=== PATIENT | female | born 1995 | race Caucasian/White ===

== ENCOUNTER 2019-04-07 20:08 | Observation (INO) ==
[2019-04-07] MEDS ORDERED: ZOFRAN IV ONE (20:29)
[2019-04-07] MEDS ORDERED: NS 1,000 ML IV ONE ×2 (20:29→21:43)
[2019-04-07 21:11] LABS: BASO# 0.01 X1000 (0.0-0.2); BASO% 0.1 % (0.0-0.8); EOS# 0.04 X1000 (0.0-0.7); EOS% 0.3 % (0.0-10.0); HEMATOCRIT 46.8 % (37.0-47.0); HEMOGLOBIN 15.1 g/dL (12.0-16.0); IMM GRAN# 0.02 X1000 (0.0-0.04); IMM GRAN% 0.1 % (0.0-0.5); LYMPH# 0.66 X1000 (1.2-3.4); LYMPH% 4.6 % (20.5-51.1); MCH 27.9 PG (27-31); MCHC 32.3 g/dL (33-37); MCV 86.3 FL (81-99); MONO# 0.72 X1000 (0.11-0.59); NEUT# 12.81 X1000 (1.4-6.5); NEUT% 89.9 % (42.2-75.2); PLT 228 X1000 (130-400); RBC 5.42 XMIL (4.2-5.4); RDW 12.8 % (11.5-14.5); WBC 14.26 X1000 (4.8-10.8)
--- NOTE | 2019-04-07 21:12 | PROVIDER DOCUMENTATION ---
HPI-Abdominal Pain/GI Problem - General Chief Complaint: N/V/D Stated Complaint: V/D/LETHARGIC Time Seen by Provider: 04/07/19 20:29 Source: patient Allergies/Adverse Reactions: Patient Allergies Allergy/AdvReac Type Severity Reaction Status Date / Time No Known Allergies Allergy Verified 08/12/12 08:55 Home Medications: Home Medication List Medication Instructions Recorded Confirmed Last Taken Type Norethindrone-E.estradiol-Iron 1 each PO DAILY 05/11/13 04/07/19 05/10/13 21:00 History [Eliz Fe 1-20 Tablet] Omeprazole [Prilosec] 20 mg PO DAILY 04/07/19 04/07/19 Unknown History - History of Present Illness-ABD Nature of Presenting Problems: 23 YOF PRESENTS WITH C/O N/V/D & ABDOMINAL PAIN THAT BEGAN AT [address] 430 TODAY. PT AND MOTHER REPORTS SHE HAS BEEN UNABLE TO HOLD ANYTHING DOWN SINCE THAT TIME. SHE REPORTS MULTIPLE PEOPLE SICK WITH THE SAME. SHE C/O CHILLS. DENIES FEVER Abdominal Pain Onset Location: reports: generalized abdomen Pain Radiation: reports: no radiation Quality of Pain: reports: aching Severity in ED: reports: moderate Onset/Duration: reports: 4-6 hours ago Timing: reports: still present Activities at Onset: reports: none Exposure to sick contacts?: Yes Modifying Factors: worse with: eating Associated Symptoms: reports: diarrhea, nausea, vomiting Last BM: this evening Dark Stools Present?: reports: none noticed Rectal Bleeding: reports: none Rectal Pain: reports: none Emesis Description: reports: none Bruising or Bleeding Gums?: No Similar Symptoms Previously?: No Recently seen or treated by another doctor?: No Review of Systems - Adult - REVIEW OF SYSTEMS - ADULT Constitutional: reports: no symptoms reported. denies: see HPI, chills, fever, fatique, night sweats, weight gain, weight loss, other Eyes: reports: no symptoms reported. denies: see HPI, discharge, dry eyes, decreased vision, blurred vision, double vision, eye pain, redness, other Ears, Nose, Mouth & Throat: reports: no symptoms reported. denies: see HPI, ear discharge, ear pain, hearing loss, tinnitus, epistaxis, sinus problem, nose pain, loose teeth, mouth/dental pain, mouth swelling, hoarseness, throat pain, throat swelling, other Cardiovascular: reports: no symptoms reported. denies: see HPI, chest pain, edema, heart murmur, irregular heart rate, orthopnea, palpitations, poor circulation, PND, syncope, other Respiratory: reports: no symptoms reported. denies: see HPI, chronic cough, cough, dyspnea on exertion, excessive sputum production, hemoptysis, pleurisy, shortness of breath, wheezing, other Gastrointestinal: reports: see HPI, abdominal pain, diarrhea, nausea, vomiting. denies: no symptoms reported, hematemesis, constipation, difficulty swallowing, frequent heartburn, poor appetite, rectal bleeding, other Genitourinary: reports: no symptoms reported. denies: see HPI, dysuria, discharge, frequency, flank pain, frequent UTI's, hematuria, hesitency, incontinence, urinary retention, urgency, other Musculoskeletal: reports: no symptoms reported. denies: see HPI, bone pain, back pain, frequent leg cramps, joint pain, joint swelling, muscle aches, muscle weakness, neck pain, other Integumentary: reports: no symptoms reported. denies: see HPI, hives, hair loss, itching, mole changes, nail changes, rash, skin sores/ulcer, skin thickening, other Neurological: reports: no symptoms reported. denies: see HPI, ataxia, dizziness/vertigo, headache/migraines, loss of balance, numbness, paresthesia, seizure, slurred speech, syncope, tremors, other Psychiatric: reports: no symptoms reported. denies: see HPI, anxiety, anti- depressant use, alcohol/drug dependence, depression, emotional problems, insomnia, panic attacks, suicidal thoughts, other Endocrine: reports: no symptoms reported. denies: see HPI, change in skin p igment, excessive sweating, goiter, cold intolerance, heat intolerance, increased hunger, increased thirst, polyuria, other Hematologic/Lymphatic: reports: no symptoms reported. denies: see HPI, blood clots, easy bruising, low blood count, lymphedema, prolonged bleeding, swollen lymph nodes, transfusions, other Allergic/Immunologic: reports: no symptoms reported. denies: see HPI, allergic reactions, allergic rhinitis, asthma, eczema, food allergy, frequent infections, hay fever, hives, positive PPD, urticaria, other Past History - Adult - PAST MEDICAL HISTORY-ADULT Review of Records: reports: Nursing Assessment Review, Social history reviewed & non-contributory. Physical Exam-General - PHYSICAL EXAM-ADULT Initial Vital Signs Reviewed: Yes - CONSTITUTIONAL General Appearance: alert, no apparent distress - EYES Eyes: PERRL/EOMI, pink conjunctivae - HEAD, EARS, NOSE, MOUTH & THROAT HENMT: normocephalic/atraumatic, normal ENT inspection. negative: moist mucous membranes (DRY) - NECK Neck: non-tender, full range of motion, supple - RESPIRATORY Respiratory: chest non-tender, lungs clear, normal breath sounds, no pleuratic chest pain, no respiratory distress, no accessory muscle use - CARDIOVASCULAR Cardiovascular: normal peripheral pulses, regular rate, rhythm, no edema, no gallop, no JVD, no murmur - GASTROINTESTINAL (ABDOMEN) Abdominal Exam: normal bowel sounds, non tender, soft - LYMPHATIC Lymphatic: no adenopathy - MUSCULOSKELETAL Back Exam: normal inspection, no CVA tenderness, no vertebral tenderness Extremity: normal range of motion, non-tender, normal gait, normal inspection Peripheral Pulses: radial (R): 2+, radial (L): 2+ - SKIN Integumentary: normal turgor, warm/dry. negative: normal color (PALE) - NEUROLOGIC Neurologic: grossly normal - PSYCHIATRIC Psych/Mental Status: normal mood/affect, oriented x 3 Progress - PLAN OF CARE/RESULTS Progress/Plan/Lab Results: Vital Signs - 8 hr 04/07/19 20:19 Temperature 97.5 F L Pulse Rate 111 H Respiratory Rate 22 O2 Sat by Pulse Oximetry 98 Orders Category Date Time Status Mis. NRSG Communication Order DIRECTED Care 04/07/19 21:08 Active Urine Preg [ED: Urine Bedside] NOW Care 04/07/19 20:30 Active CBC WITH ELECTRONIC DIFF [HEME] Stat Lab 04/07/19 20:47 Results CMP [COMPREHENSIVE METABOLIC PANEL] [CHEM] Stat Lab 04/07/19 20:47 Received LIPASE [CHEM] Stat Lab 04/07/19 20:47 Received 0.9% Sodium Chloride Inj [Ns] 1,000 ml Med 04/07/19 20:29 Active IV 999 mls/hr Ondansetron [Zofran] Med 04/07/19 20:29 Discontinued 4 mg IV NOW ONE 2119: DISCUSSED WITH DR SEYMOUR AND REQUEST HE SEE PATIENT. 2229: DISCUSSED WITH MOTHER AND PATIENT, WHO REPORT 2 FRIENDS WHO ATE AT THE SAME PLACE ALL HAVING THE SAME SYMPTOMS 2344: CALLED LAB, AWAITING URINE. SHOWS IN LAB BUT NO RESULTS. LAB CHECKING ON SPECIMEN Result Diagrams: 04/07/19 20:47 04/07/19 20:47 - REASSESSMENT Reassessment #1 Time Reassessed: 22:39 (PT REPORTS MUCH IMPROVEMENT SINCE I BAG OF FLUIDS FINISHED) Status: improving Reassessment #3 Time Reassessed: 23:24 (PT REPORTS RETURNING ABDOMINAL CRAMPS, BENTYL ORDERED) Status: unchanged - EKG 1 Time of EKG reading by physician:: 22:59 EKG Read and Signed by:: Ted Seymour EKG Interpretation (*Must complete 3 of following elements*): Abnormal Rate: 102 Rhythm: [address] [place]: normal QRS: other (NONSPECIFIC T WAVE ABNORMALITY) ST Wave: non-specific ST changes Prior EKG Comparison: no prior EKG - CT/MRI 1 CT Study: Abdomen, Pelvis Impression: Abnormal (1. MULTIPLE FLUID FILLED LOOPS OF SMALL AND LARGE BOWEL. FINDINGS CAN BE ASSSOCAITED WITH ENTERITITS/COLITIS. NO EVIDENCE OF BOWEL OBSTRUCTION.) - CONSULTS/PCP/HOSPITALIST Notification #1 *Consult/PCP/Hospitalist*: DR. RIGGINS Time Discussed: 23:59 Consult Disposition: Admit Departure - Departure Date of Disposition Decision: 04/07/19 Time of Disposition Decision: 23:59 DIAGNOSIS: Nausea vomiting and diarrhea, Dehydration Disposition: ADMITTED INPATIENT 09 Certified Medical Emergency: Emergent Condition: Stable Referrals and Follow-Ups: Maikel Sharma MD [Primary Care Provider] - - Critical Care Note This patient required my direct & personal management of CC.: No Attestation - Physician/ NICOLE Attestation Patient care was provided by Advanced Practice Provider:: Yes Advanced Practice Provider:: Alisha Casanova Advanced Practice Provider documentation review:: The Mid-level provider documentation, treatment plan and medical decision making was reviewed by the physician who agrees with all treatment and medical decision making by the MLP. The physician spent face to face time with patient:: No Advanced Practice Provider documentation review:: Supervising physician onsite and consulted in the evaluation and care of this patient. The physician did not have a face to face encounter with the patient.
[2019-04-07 21:25] LABS: AGAP 16; ALBUMIN 4.6 g/dL (3.5-5.0); ALKALINE PHOSPHATASE 65 U/L (32-104); BUN 20 mg/dL (8-22); CALCIUM 9.5 mg/dL (8.8-10.2); CHLORIDE 103 mmol/L (98-107); COSMO 281; CREATININE 0.6 mg/dL (0.5-0.9); ESTIMATED GFR > 60; GLUCOSE 147 mg/dL (70-104); GOT 20 U/L (10-30); GPT 14 U/L (10-36); POTASSIUM 3.8 mmol/L (3.5-5.1); SODIUM 138 mmol/L (136-145); TCO2 19 mmol/L (25-35); TOTAL PROTEIN 8.1 g/dL (6.3-8.3)
[2019-04-07 21:51] LABS: UR AMPHETAMINES QUAL NONE DETECTED (NONE DETECT); UR BARBITUATES QUAL NONE DETECTED (NONE DETECT); UR BENZODIAZEPIN QUAL NONE DETECTED (NONE DETECT); UR CANNABINOIDS QUAL NONE DETECTED (NONE DETECT); UR COCAINE QUAL NONE DETECTED (NONE DETECT); UR METHADONE QUAL NONE DETECTED (NONE DETECT); UR METHAMPHETAMINE QUAL NONE DETECTED (NONE DETECT); UR OPIATES QUAL NONE DETECTED (NONE DETECT); UR OXYCODONE QUAL NONE DETECTED (NONE DETECT); UR PCP QUAL NONE DETECTED (NONE DETECT); UR PROPOXYPHENE QUAL NONE DETECTED (NONE DETECT); UR TCA QUAL NONE DETECTED (NONE DETECT)
--- NOTE | 2019-04-07 22:29 | EKG Report ---
Test Performed on : 04/07/2019 10:59:33 PM Test Reason : N/V Blood Pressure : / mmHG Vent. Rate : 102 BPM Atrial Rate : 102 BPM P-R Int : 112 ms QRS Dur : 072 ms QT Int : 328 ms P-R-T Axes : 065 073 000 degrees QTc Int : 427 ms Sinus tachycardia. T wave abnormality, consider inferior ischemia T wave abnormality, consider anterior ischemia Abnormal ECG No previous ECGs available Unconfirmed Result
[2019-04-07] MEDS ORDERED: BENTYL PO ONE (23:21)
[2019-04-07] MEDS ORDERED: SODIUM CHLORIDE 0.9% INJ ONE (23:35)
[2019-04-07] MEDS ORDERED: PEPCID IV ONE (23:35)
[2019-04-07 23:46] LABS: BILIRUBIN URINE NEGATIVE (NEGATIVE); BLOOD URINE 1+ (NEGATIVE); CLARITY CLEAR (CLEAR); COLOR YELLOW; GLUCOSE URINE NEGATIVE (NEGATIVE); KETONE URINE 3+(Large) mg/dL (NEGATIVE); LEUKOCYTES URINE NEGATIVE (NEGATIVE); NITRITE URINE NEGATIVE (NEGATIVE); PROTEIN URINE 1+(30 mg/dL) mg/dL (NEGATIVE); SP GRAVITY URINE 1.025; UROBILINOGEN URINE NORMAL
[2019-04-07 23:48] LABS: URINE BACTERIA 1+ /HFP; URINE EPITHELIAL CELLS <10 /HPF (<10); URINE RBC <10 /HPF (<10); URINE WBC <10 /HPF (<10)
[2019-04-07 23:49] LABS: URINE SOURCE CLEAN CATCH
[2019-04-08] MEDS ORDERED: NS 1,000 ML IV ONE ×2 (00:26)
[2019-04-08] MEDS ORDERED: BENTYL PO PRN (00:51)
[2019-04-08] MEDS: ZOFRAN IV PRN ×2 (01:04→09:52)
[2019-04-08] MEDS: PEPCID IV SCH ×2 (02:08→12:36)
[2019-04-08 03:08] LABS: HEMATOCRIT 39.8 % (37.0-47.0); HEMOGLOBIN 12.4 g/dL (12.0-16.0)
--- NOTE | 2019-04-08 06:29 | Diag Imaging Result Doc PS360 ---
CT ABD/PELVIS W/IV CONT ONLY - 04/07/2019 INDICATION: abd pain, N/V/D COMPARISON: None FINDINGS: The lung bases are clear and the heart size is normal. The liver, gallbladder, spleen, pancreas, adrenals, and kidneys are normal. No bowel obstruction or inflammation. No free air or free fluid. Urinary bladder, uterus, ovaries, and rectum are normal. Bones are intact and well mineralized. IMPRESSION: Negative exam. This exam was performed using automated exposure control, adjustment of mA or kV according to patient size, and/or use of iterative reconstruction technique Electronically signed by Rafita Bain 04/08/2019 6:27 AM
[2019-04-08 06:30] LABS: BASO# 0.01 X1000 (0.0-0.2); BASO% 0.1 % (0.0-0.8); HEMATOCRIT 37.4 % (37.0-47.0); HEMOGLOBIN 11.6 g/dL (12.0-16.0); IMM GRAN# 0.02 X1000 (0.0-0.04); IMM GRAN% 0.2 % (0.0-0.5); LYMPH# 0.43 X1000 (1.2-3.4); LYMPH% 5.3 % (20.5-51.1); MCV 87.2 FL (81-99); MONO# 0.26 X1000 (0.11-0.59); MONO% 3.2 % (1.7-9.3); NEUT# 7.35 X1000 (1.4-6.5); NEUT% 91.2 % (42.2-75.2); PLT 174 X1000 (130-400); RBC 4.29 XMIL (4.2-5.4); RDW 12.9 % (11.5-14.5); WBC 8.07 X1000 (4.8-10.8)
[2019-04-08 06:46] LABS: AGAP 9; ALBUMIN 3.4 g/dL (3.5-5.0); ALKALINE PHOSPHATASE 44 U/L (32-104); BUN 12 mg/dL (8-22); CALCIUM 7.6 mg/dL (8.8-10.2); CHLORIDE 109 mmol/L (98-107); COSMO 276; CREATININE 0.5 mg/dL (0.5-0.9); ESTIMATED GFR > 60; GLUCOSE 134 mg/dL (70-104); GOT 14 U/L (10-30); GPT 9 U/L (10-36); POTASSIUM 3.4 mmol/L (3.5-5.1); SODIUM 137 mmol/L (136-145); TCO2 18 mmol/L (25-35); TOTAL PROTEIN 5.8 g/dL (6.3-8.3)
[2019-04-08] MEDS ORDERED: KLOR-CON PO ONE (07:02)
[2019-04-08] MEDS: NS 1,000 ML IV SCH (09:51)
[2019-04-08] MEDS: PATIENT'S OWN MED PO SCH (09:55)
--- NOTE | 2019-04-08 10:07 | HISTORY AND PHYSICAL ---
PRIMARY CARE PHYSICIAN: Dr. Maikel Sharma. CHIEF COMPLAINT: Nausea, vomiting, diarrhea, abdominal pain and cramping with chills that began after she ate [place] food at a local [place] restaurant last night. HISTORY OF PRESENT ILLNESS: This is a 23-year-old female who presents to [facility] ER with complaints of nausea, vomiting, diarrhea, abdominal pain with cramping and chills that began around 4:30 p.m. yesterday after she states that she ate at a local [place] restaurant with some friends. The friends have also had some of these same symptoms. Her workup showed a white blood cell count of 14.26. Electrolytes were all within normal limits. Plasma lactate was 1.8. Urinalysis was negative. Urine drug screen was negative. CT of the abdomen and pelvis showed a negative exam so she was admitted for further evaluation and treatment. PAST MEDICAL HISTORY: 1. Depression. 2. GERD. PAST SURGICAL HISTORY: 1. Bilateral tubal ligation. 2. Tonsillectomy. FAMILY HISTORY: Reviewed and noncontributory. SOCIAL HISTORY: She currently lives with family. Denies any tobacco, alcohol or illicit drug use. ALLERGIES: She has no known drug allergies. HOME MEDICATIONS: She takes 1. Eliz FE 1/20 tablet p.o. daily. 2. Omeprazole 20 mg p.o. daily will be held. LABORATORY DATA: Showed a white blood cell count of 14.26, hemoglobin 15.1, hematocrit 46.8, platelets 228,000. Sodium 138, potassium 3.8, chloride 103, CO2 19, BUN of 20, creatinine 0.6, glucose 147, lipase 26, plasma lactate 1.8. Urinalysis was negative. Urine drug screen showed none detected. CT of the abdomen and pelvis showed a negative exam. EKG showed sinus tachycardia at 102. Repeat CBC shows her white blood cell count has returned to normal at 8.07. REVIEW OF SYSTEMS: She denied any fever. She was positive for chills. Denies any blurred vision, dizziness, chest pain, coughing, shortness of breath. She did have abdominal pain with cramping, nausea, vomiting, diarrhea, chills. Denied any burning or hurting with urination. PHYSICAL EXAMINATION: VITAL SIGNS: On arrival she had a temperature of 97.5 degrees, pulse 111, respirations 22, orthostatic blood pressure showed lying 109/67, sitting 109/76, standing 102/73. GENERAL: This is a 23-year-old female who is lying in the bed. Answers questions appropriately. HEENT: Normocephalic, atraumatic. Normal ENT inspection. Oropharynx and nares are clear. EYES: Pupils are equal, round, reactive to light and accommodation. Extraocular movements are intact. NECK: Normal inspection. Normal range of motion. LUNGS: Clear to auscultation bilaterally with equal lung expansion and chest wall movement. HEART: Regular rate and rhythm. No murmurs, rubs, or gallops. ABDOMEN: Soft, nontender, nondistended. Bowel sounds are present x4 quadrants. MUSCULOSKELETAL: She has 5/5 strength x4 extremities. NEUROLOGICAL: The cranial nerves 2-12 appear grossly intact. ASSESSMENT: 1. Gastroenteritis. 2. Nausea, vomiting, diarrhea. 3. Leukocytosis, resolved. 4. Gastroesophageal reflux disease. PLAN: She was admitted to the medical unit, placed on telemetry, initially on a clear liquid diet. We are going to advance her to a GI soft diet. She is on Pepcid 20 mg IV q.12, Zofran 4 mg IV q.4 hours p.r.n., normal saline at 125 mL an hour overnight, but I am going to decrease that down now to 75 mL an hour. If she tolerates her GI soft diet without any further nausea or vomiting, I think we can probably look at discharging her home later this afternoon but will evaluate that at that time per attending. Dictated by LILA Justin for Bijan Handy MD cc: LILA Justin MD Rodney W. Harney, MD
[2019-04-08] MEDS: SODIUM CHLORIDE 0.9% INJ SCH (12:36)
[2019-04-09] MEDS: SODIUM CHLORIDE 0.9% INJ SCH ×2 (00:20→13:01)
[2019-04-09] MEDS: PEPCID IV SCH ×2 (00:20→13:01)
[2019-04-09] MEDS: NS 1,000 ML IV SCH ×2 (00:21→11:26)
--- NOTE | 2019-04-09 03:31 | PROGRESS NOTE ---
DATE: 04/08/2019 SUBJECTIVE: The patient was seen and examined. She is still having some nausea. Has not really kept anything down overnight. She is going to attempt some liquids today. Denies any fevers or chills. OBJECTIVE: General: She is awake, alert, oriented, but she is still somewhat ill-appearing. HEENT: Normocephalic. Neck: Supple. Cardiovascular: Regular rate. Chest: Clear. Abdomen: Soft, slightly diffusely tender. Extremities: Moves all extremities. ASSESSMENT: 1. Leukocytosis, improved. White count has dropped from 14 down to 8. 2. Nausea and vomiting, likely viral gastroenteritis. 3. Others. We will go ahead and admit the patient to the hospital. She does not appear to be in DKA, but certainly is volume depleted due to her diabetes. Discussed with the patient the importance of controlling and we will follow 4. Nausea and vomiting. 5. Abdominal pain. PLAN: We are going to continue the patient in the hospital. We will attempt to advance her diet as tolerated. Continue IV fluids until she is able to eat and drink any better. cc: Bijan Handy MD
[2019-04-09] MEDS: PATIENT'S OWN MED PO SCH (09:53)
[2019-04-09 13:06] VITALS: BP 110/66
--- NOTE | 2019-04-09 22:09 | DISCHARGE SUMMARY ---
ADMISSION DATE: 04/08/2019 DISCHARGE DATE: 04/09/2019 PRIMARY CARE PHYSICIAN: Dr. Maikel Sharma. ADMISSION DIAGNOSES: 1. Gastroenteritis. 2. Nausea, vomiting, diarrhea. 3. Leukocytosis, resolved. 4. Gastroesophageal reflux disease. DISCHARGE DIAGNOSES: 1. Gastroenteritis, improved. 2. Nausea, vomiting and diarrhea resolved. 3. Leukocytosis resolved. 4. Gastroesophageal reflux disease. SUMMARY OF FINDINGS: This is a 23-year-old female who presented to the ER with complaints of nausea, vomiting, diarrhea and abdominal pain with cramping and chills that began around 4:30 p.m. after she states she ate at a local [employer] restaurant with some friends, friends did have the same symptoms. When she came to the emergency room her white blood cell count was 14.26. Electrolytes were within normal limits. Urinalysis was negative. We did do a CT of the abdomen and pelvis that was a negative exam. We advanced her diet to some full liquids and she tolerated well. We did go ahead and check a C difficile toxin and it was negative. She has had no further stools or diarrhea since yesterday around lunch so it is now felt that she can safely be discharged home. DISCHARGE MEDICATIONS: She will continue her Prilosec 20 mg p.o. daily, will give her some Zofran 4 mg p.o. q.4 hours p.r.n. FOLLOWUP: She will need to follow up with her primary care physician. We did want to check some stool for culture, shiga toxin and a white blood cell but she has had no further stool at this time or diarrhea so when she follows up with her primary care if he feels that it is needed they will do that testing at that time. TIME SPENT: 35 minutes. Dictated by LILA Justin for Fazal Dubois MD cc: MD Fazal Harris MD Pt seen and examined, she is tolerating po and having no more diarrhea, abdominal exam is benign; I do not think we need to collect a stool sample as her diarrhea has stopped and she is clinically improving and this is most likely a case of food poisoning possible Staph associated preformed toxin mediated diarrhea. MELY
== END 2019-04-09 14:27 | disposition home or self-care (01) ==
LOC: P.MEDSURG 20:08 → P.ED 20:08 → SUATTDRO 04-08 00:45
PROVIDERS: ATTEND Internal Medicine